=== PATIENT | male | born 1970 | race Caucasian/White ===

== ENCOUNTER → 2016-12-18 | Outpatient (CLI) | payer OTHER ==
[~2016-12-18] MED LIST: PRED-301 PO; PRED10TA PO
[2016-12-18 16:33] LABS: HEMATOCRIT 43.9 % (42-52); MEAN CELL VOLUME 84.9 fL (80-100); MEAN CORPUSCULAR HEMOGLOBIN 28.4 pg (25-34); MEAN CORPUSCULAR HGB CONC 33.5 g/dl (32-36); MEAN PLATELET VOLUME 9.6 fL (7.4-10.4); PLATELET COUNT 191 K/uL (130-400); RED BLOOD COUNT 5.17 M/uL (4.7-6.1); WHITE BLOOD COUNT 6.09 K/uL (4.8-10.8)
[2016-12-18 16:39] LABS: URINE APPEARANCE CLEAR (CLEAR); URINE BILIRUBIN NEG (NEG); URINE COLOR YELLOW; URINE EPITHELIAL CELL AUTO 0-5 /lpf (0-5); URINE NITRITE NEG (NEG); URINE PH 6.5 (4.5-7.5); URINE SPECIFIC GRAVITY 1.008 (1.000-1.030); UROBILINOGEN NEG (NEG)
[2016-12-18 16:40] LABS: ALT/SGPT 36 U/L (12-78); BLOOD UREA NITROGEN 34 mg/dl (7-18); BUN/CREATININE RATIO 13.2 (10-20); CARBON DIOXIDE 25 mmol/L (21-32); CHLORIDE 102 mmol/L (98-107); GLUCOSE 76 mg/dl (70-99); POTASSIUM 3.9 mmol/L (3.5-5.1); SODIUM 137 mmol/L (136-145)
[2016-12-18 16:42] LABS: MANUAL MICROSCOPIC REQUIRED? NO; REVIEW REQ? NO
[2016-12-18 16:43] LABS: ALB/GLOB RATIO 0.9 (0.9-2); ALKALINE PHOSPHATASE 94 U/L (45-117); AST/SGOT 30 U/L (15-37)
[2016-12-18 16:56] LABS: URINE PROTIEN/CREAT RATIO 0.4 (0-0.2); URINE TOTAL PROTEIN 10.8 mg/dl (0-11.9)
[2016-12-18 20:12] LABS: CALCIUM 13.2 mg/dl (8.5-10.1)
== END | disposition home or self-care (01) ==
LOC: C.LAB1850 14:43
PROVIDERS: ATTEND Internal Medicine Nephrology
DX: D86.9 Sarcoidosis, unspecified (principal); N18.3 Chronic kidney disease, stage 3 (moderate); N20.0 Calculus of kidney

== ENCOUNTER 2016-12-29 13:51 | Inpatient (IN) | payer OTHER ==
[~2016-12-29] VITALS: Ht 182.9 cm; Wt 74.5 kg
[~2016-12-29 13:51] MED LIST changes: -PRED10TA PO
[2016-12-29 14:48] VITALS: BP 143/89; PULSE 108; TEMP 37.1; O2SAT 98; Ht 182.9 cm; Wt 74.5 kg
[2016-12-29] MEDS ORDERED: ZOLPIDEM TARTRATE 5 MG TAB PO PRN (15:00)
[2016-12-29] MEDS ORDERED: ONDANSETRON INJ 2 MG/ML 2 ML VIAL IV PRN (15:00)
[2016-12-29] MEDS ORDERED: MAGNESIUM HYDROXIDE SUSP 30 ML UDC PO PRN (15:00)
[2016-12-29] MEDS ORDERED: POLYETHYLENE (MIRALAX) 17 GM PACK PO PRN (15:00)
[2016-12-29] MEDS ORDERED: ALUMINUM/MAGNESIUM/SIMETH (MAALOX MAX) 30 ML UDC PO PRN (15:00)
[2016-12-29] MEDS ORDERED: ACETAMINOPHEN 325 MG TAB PO PRN (15:00)
[2016-12-29 15:18] LABS: HEMATOCRIT 41.6 % (42-52); MEAN CELL VOLUME 83.9 fL (80-100); MEAN CORPUSCULAR HEMOGLOBIN 29.4 pg (25-34); MEAN CORPUSCULAR HGB CONC 35.1 g/dl (32-36); MEAN PLATELET VOLUME 9.1 fL (7.4-10.4); PLATELET COUNT 173 K/uL (130-400); RED BLOOD COUNT 4.96 M/uL (4.7-6.1); WHITE BLOOD COUNT 4.69 K/uL (4.8-10.8)
[2016-12-29 15:32] LABS: PROTHROMBIN TIME (PATIENT) 10.4 SECONDS (9.0-12.0)
[2016-12-29] MEDS: SODIUM CHLORIDE 0.9% 1000ML 1,000 ML IV SCH ×2 (15:50→20:40)
[2016-12-29 15:57] LABS: BUN/CREATININE RATIO 13.3 (10-20); CREATININE 2.7 mg/dl (0.60-1.40); MAGNESIUM 2.1 mg/dl (1.8-2.4); POTASSIUM 3.3 mmol/L (3.5-5.1)
[2016-12-29 15:58] LABS: PHOSPHORUS 2.4 mg/dl (2.5-4.9)
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
--- NOTE | 2016-12-29 16:04 | DIAGNOSTIC IMAGING REPORT ---
CHEST 2 VIEWS ROUTINE CLINICAL HISTORY: SOB dyspnea COMPARISON STUDY: 12/31/2013 FINDINGS: Interval development of diffuse bilateral interstitial change. Appearance is most consistent with that of an interstitial pneumonitis. No evidence for cardiac enlargement. Diaphragms smooth. IMPRESSION: Interval development of diffuse bilateral interstitial change. Initially, interstitial pneumonitis must be considered. Electronically signed by: Rafael Mcclain M.D. 12/29/2016 4:03 PM Dictated Date/Time: 12/29/2016 4:02 PM
[2016-12-29 16:06] LABS: CALCIUM 12.2 mg/dl (8.5-10.1)
[2016-12-29 19:33] VITALS: BP 125/76; PULSE 75; TEMP 36.9; O2SAT 99
[2016-12-29] MEDS: HEPARIN SOD 5000 UNIT/0.5 ML CARP SQ SCH (20:53)
[2016-12-29 23:10] VITALS: BP 113/67; PULSE 73; TEMP 36.9; O2SAT 94
[2016-12-29 23:50] LABS: BUN/CREATININE RATIO 13.6 (10-20); CALCIUM 10.3 mg/dl (8.5-10.1); CREATININE 2.6 mg/dl (0.60-1.40); POTASSIUM 3.8 mmol/L (3.5-5.1)
[2016-12-30 03:20] VITALS: BP 92/53; PULSE 60; TEMP 36.6; O2SAT 98
[2016-12-30] MEDS: HEPARIN SOD 5000 UNIT/0.5 ML CARP SQ SCH (05:04)
[2016-12-30 07:44] VITALS: BP 101/64; PULSE 67; TEMP 36.5; O2SAT 92
[2016-12-30 07:54] LABS: BUN/CREATININE RATIO 13.9 (10-20); CREATININE 2.6 mg/dl (0.60-1.40); POTASSIUM 4.4 mmol/L (3.5-5.1)
--- NOTE | 2016-12-30 08:21 | Rheumatology Consultation ---
Rheumatology Consultation Date of Consultation: December 30, 2016. Requesting Physician: Dr Bazan Attending Physician: Dr Bazan Reason for Consultation: hypercalcemia, sarcoid History of Present Illness Mr Leroy Martin is a 46 y/o male with a known diagnosis of pulmonary sarcoid dating back 9 yrs. He also has a solitary kidney, chronic stage 3 CKD (followed by Dr Soni) who presented to his outpatient visit with Dr Soni for routine 1 yr follow up. He had labs the week prior leading up to this appointment and it was noted that his calcium level was >13.2. Yesterday at his appt with Dr Soni he had no real complaints but given the calcium level was sent over to the hospital for admission. here at the hospital his calcium level was 12.2. He was started on IV fluids and given prednisone 70mg daily. He was seen today lying in bed. he feels pretty good. He denies any nausea, diarrhea, CP, night sweats, weight loss, MSK pains. He does report that over the last few months he has noted some increasing CARTER with hard exertion. when he is just walking around no CARTER> His CXR yesterday did show increased interstital markings suggestive of interstitial pneumonitis. He had a normal CXR last year with Dr Baez who is his instructional technology teacher. For diagnosis of sarcoid - he reports that it all started with him not able to get over a cold 9 yrs ago. he had fevers for 3 months and productive cough. He was seen by Dr Baez and at that time he reports his lungs were white on x ray. He recalls having a bronch but not sure if the biopsy proved he had sarcoid. 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 He reports that he was treated with prednisone at that time and thinks he was treated for 1 yr or a little more. He has not been on any treatment for some time now. He is not sure why he has kidney disease - at the time of his sarcoid diagnosis he was using a lot of OTC medications for what he thought was a cold. He has never had any inflammatory arthritis. he does mention that a few months ago the bones in his leg hurt - would be one area at a time but he just ignored it and it went away. no pain today. no rashes. He is hoping to go home soon. He has never seen rheumatology in the past. He does have an upcoming appointment with Dr Baez this February for routine pulmonary follow up. this am his calcium level is 10. His Cr is now ranging at 2.6 - 2 yrs ago was 1.5 range. GFR currently in the high 20's. His recent vit D was 19.8 and PTH was 13.3. several yrs ago MEME level was normal. Past Medical/Surgical History Medical History: kidney stones, renal disease, other (sarcoid) Surgical History: lithotripsy Family History no family history of autoimmune diseases father - alive mother - alive - history of breast CA Social History Smoking Status: Never Smoker History of Alcohol Use: No Occupation Status: employed Review of Systems Constitutional: No chills, No fever, No sweats, No weight loss Respiratory: + dyspnea on exertion, No cough, No sputum Cardiac: + see HPI, No chest pain, No edema Abdomen: + see HPI, No nausea, No pain Musculoskeletal: + see HPI, No joint pain, No muscle pain Skin: + see HPI, No rash All Other Systems: Reviewed and Negative Allergies Coded Allergies: No Known Allergies (Unverified , 01/16/14) Medications Current Inpatient Medications Medications (Trade) Dose Ordered Sig/Nicola Route Start Time Stop Time Status Last Admin Dose Admin Heparin Sodium (Porcine) (Heparin Sq 5000 Unit/0.5ml) 5,000 unit Q8 SQ 12/29/16 22:00 01/28/17 21:59 Acetaminophen (Tylenol Tab) 650 mg Q4H PRN PO 12/29/16 15:00 01/28/17 14:59 Al Hydrox/Mg Hydrox/Simethicone (Maalox Max Susp) 15 ml Q4H PRN PO 12/29/16 15:00 01/28/17 14:59 Magnesium Hydroxide (Milk Of Magnesia Susp) 30 ml Q12H PRN PO 12/29/16 15:00 01/28/17 14:59 Zolpidem Tartrate (Ambien Tab) 5 mg HSZ PRN PO 12/29/16 15:00 01/28/17 14:59 Ondansetron HCl (Zofran Inj) 4 mg Q6H PRN IV 12/29/16 15:00 01/28/17 14:59 Polyethylene (Miralax Powder Packet) 17 gm DAILY PRN PO 12/29/16 15:00 01/28/17 14:59 Prednisone (PredniSONE TAB) 70 mg DAILY PO 12/29/16 16:30 01/28/17 16:29 12/29/16 17:19 70 MG Physical Exam Date Time Temp Pulse Resp B/P Pulse Ox O2 Delivery O2 Flow Rate FiO2 12/30/16 07:44 36.5 67 16 101/64 92 Room Air 12/30/16 04:00 Room Air 12/30/16 03:20 36.6 60 16 92/53 98 Room Air 12/30/16 00:01 Room Air 12/29/16 23:10 36.9 73 16 113/67 94 Room Air 12/29/16 20:00 Room Air 12/29/16 19:33 36.9 75 18 125/76 99 Room Air 12/29/16 14:48 37.1 108 19 143/89 98 Room Air General Appearance: WD/WN, no apparent distress Eyes: bilateral eyes EOMI, bilateral eyes normal inspection ENT: normal ENT inspection, hearing grossly normal, pharynx normal Respiratory: chest non-tender, no respiratory distress, no accessory muscle use , + pertinent finding (some oarse breath sounds noted but no rhonchi or wheezes) Cardiovascular: regular rate, rhythm, no edema, no gallop, no murmur Abdomen: normal bowel sounds, non tender, soft Musculoskeletal: no synovitis or dactylitis Neurologic/Psychiatric: alert, normal mood/affect, oriented x 3 Skin: normal color, warm/dry, no rash Laboratory Results Last 24 Hours Test 12/29/16 15:00 12/29/16 22:50 12/30/16 06:52 White Blood Count 4.69 K/uL Red Blood Count 4.96 M/uL Hemoglobin 14.6 g/dL Hematocrit 41.6 % Mean Corpuscular Volume 83.9 fL Mean Corpuscular Hemoglobin 29.4 pg Mean Corpuscular Hemoglobin Concent 35.1 g/dl RDW Standard Deviation 38.5 fL RDW Coefficient of Variation 12.8 % Platelet Count 173 K/uL Mean Platelet Volume 9.1 fL Prothrombin Time 10.4 SECONDS Prothromb Time International Ratio 1.0 Sodium Level 138 mmol/L 145 mmol/L Potassium Level 3.3 mmol/L 3.8 mmol/L Chloride Level 103 mmol/L 110 mmol/L Carbon Dioxide Level 26 mmol/L 26 mmol/L Anion Gap 9.0 mmol/L 9.0 mmol/L Blood Urea Nitrogen 36 mg/dl 35 mg/dl Creatinine 2.70 mg/dl 2.60 mg/dl Est Creatinine Clear Calc Drug Dose 35.6 ml/min 36.9 ml/min Estimated GFR () 31.8 33.3 Estimated GFR (Non- 27.4 28.7 BUN/Creatinine Ratio 13.3 13.6 Random Glucose 106 mg/dl 117 mg/dl Calcium Level 12.2 mg/dl 10.3 mg/dl Phosphorus Level 2.4 mg/dl Magnesium Level 2.1 mg/dl Assessment & Plan Assessment & Plan: Assessment: Mr Leroy Martin is a 46 y/o male with known sarcoid, ckd stage 2/3 who presented with hypercalcemia, worsening kidney disease (stage 4 but unclear if this is acute) and found to have increased pulmonary interstitial changes on chest x ray. These changes are felt to be likely related to his sarcoid. Unclear if his worsening kidney disease is related to his sarcoid or not - usually sarcoid renal disease is the hypercalcemia, interstitial nephritis is usually at the time of diagnosis and not in long standing disease. His calcium levels has normalized at this point with IVF and prednisone. I would continue with prednisone but can decrease the dose to 30mg daily and discharge him on this dose. He will need outpatient pulmonology evaluation sooner than February and I will contact his [facility] Trucking Supervisor to get this arrange. Question is will he need therapy for his lung disease outside of steroids. The case was discussed with Dr Bazan yesterday as well as the hospitalist today. Plan: 1. I suggest cutting prednisone to 30mg daily and discharge on this dose 2. Recommend getting UA, urine prot/creat ratio prior to discharge - I will contact his upholsterer apprentice to discuss further - unclear if kidney biopsy is needed at this point 3. I will send a message to Dr Baez ([facility]) regarding his admission to see if he can move the patients outpatient evaluation up 4. I will get outpatient Rheumatology appt set up in our [facility] in the next 2 weeks 5. Thank you for the consult and involving me in this patients care.
[2016-12-30] MEDS ORDERED: PRED10TA PO (09:41)
--- NOTE | 2016-12-30 10:30 | Nephrology Consultation ---
Nephrology Consultation Date & Providers Date of Consultation: December 30, 2016. Primary Care Provider: No Doctor, Assigned Referring Provider: Reason for Consultation Evaluation of hypercalcemia, sarcoidosis and acute on chronic kidney injury History of Present Illness Mr. Martin is a 46 year old white male who is seen at the request of Dr. Rosas for evaluation of acute on chronic kidney injury, hypercalcemia and sarcoidosis. Medical records in the hospital and office EMR were reviewed and are summarized as follows: Mr. Martin has been a longstanding patient of [facility]. He has a congenital solitary functioning left kidney. This was an incidental finding on abdominal CT. His baseline creatinine has been 1.5 (01/26 ). He has mixed CaOx and CaPO4 kidney stones and has required lithotripsy in the past. He has undergone metabolic stone evaluation and follows w/ Nephrology on an annual basis. His medical history is also significant for sarcoidosis. Mr. Martin presented to the Nephrology office yesterday for routine evaluation. Laboratory results revealed Ca 13.2 w/ low vitamin D & PTH levels. Serum creatinine had risen to 2.6. Urine sediment was benign. There was no hematuria or casts. UPCR was 0.4. Direct admission to the hospital was arranged for medical management of hypercalcemia, sarcoidosis and acute on chronic kidney disease. Since admission to the hospital Mr. Martin has been treated w/ IVF and prednisone. Calcium has normalized but creatinine is unchanged. CXR films were reviewed this am. Patient has bilateral interstitial infiltrates. Rheumatology consultation was reviewed. They have recommended tapering prednisone to 30 mg daily and outpatient follow up. Arrangements are being made for patient to see his manager lighting Dr. Baez as an outpatient. Past Medical/Surgical History Medical: # Congenital solitary functioning L kidney # Sarcoidosis # Mixed CaOx & CaPO4 kidney stones s/p lithotripsy Surgical: # Lithotripsy Allergies Coded Allergies: No Known Allergies (Unverified , 01/16/14) Inpatient Medications Current Inpatient Medications Medications (Trade) Dose Ordered Sig/Nicola Route Start Time Stop Time Status Last Admin Dose Admin Heparin Sodium (Porcine) (Heparin Sq 5000 Unit/0.5ml) 5,000 unit Q8 SQ 12/29/16 22:00 01/28/17 21:59 Acetaminophen (Tylenol Tab) 650 mg Q4H PRN PO 12/29/16 15:00 01/28/17 14:59 Al Hydrox/Mg Hydrox/Simethicone (Maalox Max Susp) 15 ml Q4H PRN PO 12/29/16 15:00 01/28/17 14:59 Magnesium Hydroxide (Milk Of Magnesia Susp) 30 ml Q12H PRN PO 12/29/16 15:00 01/28/17 14:59 Zolpidem Tartrate (Ambien Tab) 5 mg HSZ PRN PO 12/29/16 15:00 01/28/17 14:59 Ondansetron HCl (Zofran Inj) 4 mg Q6H PRN IV 12/29/16 15:00 01/28/17 14:59 Polyethylene (Miralax Powder Packet) 17 gm DAILY PRN PO 12/29/16 15:00 01/28/17 14:59 Prednisone (PredniSONE TAB) 70 mg DAILY PO 12/29/16 16:30 01/28/17 16:29 12/30/16 08:03 70 MG Family History Patient reports no known family medical history. Negative for CKD / ESRD Social History Smoking Status: Never Smoker Smokeless Tobacco Use: No Alcohol Use: none Marital Status: single Occupation: employed Single. No children. 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 Never a smoker. Review of Systems Constitutional: No fever Respiratory: + dyspnea on exertion, No cough Cardiovascular: No chest pain Abdomen: No nausea, No pain, No vomiting A complete review of systems was performed. Pertinent positives are noted above. All other systems are negative. Physical Exam Date Time Temp Pulse Resp B/P Pulse Ox O2 Delivery O2 Flow Rate FiO2 12/30/16 07:44 36.5 67 16 101/64 92 Room Air 12/30/16 04:00 Room Air 12/30/16 03:20 36.6 60 16 92/53 98 Room Air 12/30/16 00:01 Room Air 12/29/16 23:10 36.9 73 16 113/67 94 Room Air 12/29/16 20:00 Room Air 12/29/16 19:33 36.9 75 18 125/76 99 Room Air 12/29/16 14:48 37.1 108 19 143/89 98 Room Air General Appearance: WD/WN, no apparent distress Head: normocephalic, atraumatic Eyes: PERRL, EOMI Neck: supple, no adenopathy Respiratory/Chest: lungs clear, no respiratory distress Cardiovascular: regular rate, rhythm Abdomen/GI: normal bowel sounds, non tender, soft Back: no CVA tenderness Extremities/Musculoskelatal: no calf tenderness, no pedal edema Neurologic/Psych: alert, oriented x 3 Skin: warm/dry Laboratory Results Last 24 Hours Test 12/29/16 15:00 12/29/16 22:50 12/30/16 06:52 White Blood Count 4.69 K/uL Red Blood Count 4.96 M/uL Hemoglobin 14.6 g/dL Hematocrit 41.6 % Mean Corpuscular Volume 83.9 fL Mean Corpuscular Hemoglobin 29.4 pg Mean Corpuscular Hemoglobin Concent 35.1 g/dl RDW Standard Deviation 38.5 fL RDW Coefficient of Variation 12.8 % Platelet Count 173 K/uL Mean Platelet Volume 9.1 fL Prothrombin Time 10.4 SECONDS Prothromb Time International Ratio 1.0 Sodium Level 138 mmol/L 145 mmol/L 142 mmol/L Potassium Level 3.3 mmol/L 3.8 mmol/L 4.4 mmol/L Chloride Level 103 mmol/L 110 mmol/L 111 mmol/L Carbon Dioxide Level 26 mmol/L 26 mmol/L 24 mmol/L Anion Gap 9.0 mmol/L 9.0 mmol/L 7.0 mmol/L Blood Urea Nitrogen 36 mg/dl 35 mg/dl 36 mg/dl Creatinine 2.70 mg/dl 2.60 mg/dl 2.60 mg/dl Est Creatinine Clear Calc Drug Dose 35.6 ml/min 36.9 ml/min 38.2 ml/min Estimated GFR () 31.8 33.3 33.3 Estimated GFR (Non- 27.4 28.7 28.7 BUN/Creatinine Ratio 13.3 13.6 13.9 Random Glucose 106 mg/dl 117 mg/dl 126 mg/dl Calcium Level 12.2 mg/dl 10.3 mg/dl 10.0 mg/dl Phosphorus Level 2.4 mg/dl Magnesium Level 2.1 mg/dl Impression (1) Hypercalcemia due to sarcoidosis (2) Acute renal insufficiency (3) CKD (chronic kidney disease) stage 3, GFR 30-59 ml/min (4) Sarcoidosis (5) History of kidney stones Recommendations Patient seen & examined in the PCU this morning. He has tolerated IV fluids and initiation of steroid therapy. His serum calcium has normalized. Kidney function remains unchanged. Outpatient laboratory studies at [facility] lab revealed a benign urine sediment without casts. Clinically suspect that patient suffered mild volume contraction associated w/ hypercalcemia and acute on chronic kidney injury. He may have interstitial scarring associated w/ sarcoidosis. We discussed the indications/benefits/risks and alternatives to a [place] kidney biopsy. The patient has a solitary functioning kidney. He does not wish to risk further injury to the kidney. We will order a renal US and proceed w/ medical management of sarcoidosis. I have placed an order in [employer] to have my temporary staff accountant contact patient on Sunday and schedule an outpatient follow up visit in 2 - 3 weeks. Orders have been placed in office EMR to have follow up blood work completed prior to his office visit. 60 minute visit provided to the patient today. This was necessary to review his medical record, trial consultant recommendations, perform physical and discuss indications/risks of kidney biopsy and medical management. Over 50% of time provided was spent on education and coordination of care.
--- NOTE | 2016-12-30 10:52 | Discharge Instructions ---
Discharge Instructions Date of Service December 30, 2016. Admission Reason for Admission: Hyper Calcemia,Sarcoidosis Discharge Discharge Diagnosis / Problem: Hypercalcemia, CKD stage III solitary kidney, Sarcoidsosis Discharge Goals Goal(s): Improve function, Diagnostic testing, Specific goals (follow up with specialists) Activity Recommendations Activity Limitations: resume your previous activity Exercise/Sports Limitations: as tolerated May Resume Sexual Activity: when tolerated Shower/Bathe: no limitations Driving or Machine Use: no limitations . Instructions / Follow-Up Instructions / Follow-Up Medications: - PREDNISONE: 30mg daily, continue this until instructed to change dose by rheumatology FOLLOW UP - Dr. Lundberg: his office will contact you about an appointment in 2 weeks - Dr. Soni: his office will contact you about a follow up appointment in 1-2 weeks - Please contact Dr. Baez in [place] about moving up appointment from February to next 2 weeks, Dr. Lundberg said that he was going to contact them as well Current Hospital Diet Patient's current hospital diet: Regular Diet Discharge Diet Recommended Diet: Regular Diet Procedures Procedures Performed: none Pending Studies Studies pending at discharge: no Laboratory Results Last Resulted CBC 12/29/16 15:00 Last Resulted BMP 12/30/16 06:52 Medical Emergencies . Who to Call and When: Medical Emergencies: If at any time you feel your situation is an emergency, please call 911 immediately. . Non-Emergent Contact Non-Emergency issues call your: Cemetery Worker, Foreign Language Teacher, Specialist (Dr. Lundberg) Call Non-Emergent contact if: you have any medication questions . Past History Medical & Surgical History: (1) CKD (chronic kidney disease) stage 3, GFR 30-59 ml/min (2) Hypercalcemia due to sarcoidosis . "Provider Documentation" section prepared by Elmer Rosas. . VTE Core Measure Inpt VTE Proph given/why not?: Unfractionated heparin SQ [place] Drug Monitoring Program Search Results: no issues identified
[2016-12-30 11:41] VITALS: BP 113/71; PULSE 74; TEMP 36.6; O2SAT 98
--- NOTE | 2016-12-30 12:37 | DIAGNOSTIC IMAGING REPORT ---
RENAL ULTRASOUND HISTORY: Renal insufficiency DIOMEDES COMPARISON: None. FINDINGS: Right kidney: Surgically absent Left kidney: Maximum dimension 12.0 cm. Nonobstructing lower pole calcification. Increased cortical echogenicity consistent with nonobstructive renal insufficiency. Bladder: No bladder wall thickening. The bilateral ureteral jets were identified. IMPRESSION: 1. Absent right kidney. 2. Increased cortical echogenicity left kidney with a nonobstructing lower pole 7 mm calcification. 3. The appearance is suggestive of nonobstructive renal insufficiency Electronically signed by: Rafael Mcclain M.D. 12/30/2016 12:35 PM Dictated Date/Time: 12/30/2016 12:34 PM
--- NOTE | 2016-12-30 12:41 | DIAGNOSTIC IMAGING REPORT ---
CHEST CT WITHOUT CONTRAST CT DOSE: 253.62 mGy.cm HISTORY: Interstitial lung disease sarcoidosis TECHNIQUE: Multiaxial CT images of the chest were performed without contrast. COMPARISON: None. FINDINGS: Diffuse subtle increase in interstitial markings throughout both hemithoraces. Calcified granuloma right upper lobe considered benign. No consolidative infiltrates. Interstitial changes predominate in the lower to mid lung regions. No significant hilar or mediastinal adenopathy within limitations of an unenhanced scan. Limited evaluation the upper abdomen is unremarkable. Possible subtle underlying interstitial reticular nodular-type change. IMPRESSION: 1. Diffuse nonspecific interstitial change predominantly in the mid to lower lung regions bilaterally. 2. Diagnostic considerations include a nonspecific interstitial pneumonitis, hypersensitivity pneumonitis, versus a multiplicity of etiologies with findings of interstitial change 3. There are no consolidative or focal infiltrative change. 4. Interstitial changes described are potentially associated with minimal reticular nodular-type change as a secondary finding.. 5. Acquisition of prior studies would be helpful for more definitive evaluation Electronically signed by: Rafael Mcclain M.D. 12/30/2016 12:40 PM Dictated Date/Time: 12/30/2016 12:35 PM
--- NOTE | 2016-12-30 13:18 | Pulmonary Consultation ---
History General Date of Service: December 30, 2016. Stated Complaint: Hyper Calcemia,Sarcoidosis HPI The patient is a 46 year old male who presents to [facility] with complaints of Hyper Calcemia,Sarcoidosis. The patient's primary care provider is No Doctor, Assigned. 46y/o male directly admitted for hypercalcemia and JAQUELIN secondary to a possible sarcoidosis flare. The patient has noted progressive dyspnea over the last 3-6 months. His progressive CARTER is his only active complaint. He denies: chronic cough, fever, chills, night sweats, weight loss, classic cardiac CP, pleurisy, palpitations, nausea, vomiting or sick contacts. The patient notes he was diagnoses with sarcoidosis after a bronchoscopy but stated he is not sure the pathology was consistent with sarcoidosis. He sees his c d area supervisor once per year gets PFTs every other year and has not seen Dr. Baez since his decline. He notes being off steroids for the last 2 years. Work-Up: WBC: 5K Plt: 173 H/H: 15/42 INR/PT: 1.0/10.4 BUN/Cr: 36/2.60 EGFR: 28.7 Ca: 12.210.0 Phos: 2.4 M.1 EKG (12/29/16) compared to (12/31/13) Stable NSR, RSR V1 CXR compared to 12/31/2013 Moderate increased of bilateral interstitial changes greatest in the RLL and RML CT ABD (11/23/13) Minimal interstitial changes in the LLL (LB10) and RML (RB4) Historian: patient, EMS Review of Systems Constitutional: reports: malaise, weakness Eyes: reports: no symptoms ENT: reports: no symptoms Cardiovascular: reports: no symptoms Respiratory: reports: as stated in HPI Gastrointestinal: reports: no symptoms Genitourinary - Male: reports: no symptoms Musculoskeletal: reports: no symptoms Integumentary: reports: no symptoms Neurologic: reports: no symptoms Psychiatric: reports: no symptoms Endocrine: no symptoms Hematologic / Lymphatic: no symptoms Allergic / Immunologic: no symptoms Past Medical History Past Medical History: 1) Acute renal insufficiency 2) Chronic kidney disease (CKD), stage II (mild) baseline creatinine has been 1.4 w/ mGFR 65 cc/minute 3) Congenital solitary functioning left kidney 4) Nephrolithiasis (CaOx-small amount of CaPO4) 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 Baez in [place], [place]) 7) Hypercalcemia Past Surgical History: 1) Lithotripsy 01/2014 (left: renal stone) Family History Patient reports no known family medical history. 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 Hx Tobacco Use In Past Year?: No Smoking Status: Never Smoker Marital status: single Occupational Status: employed Allergies Coded Allergies: No Known Allergies (Unverified , 01/16/14) Current Medications Reported Home Medications Medications Dose Route/Sig Max Daily Dose Days Date Category Prednisone 10 Mg Tab 30 Mg PO DAILY 30 12/30/16 Rx Prednisone 5 Mg Tab 5 Mg PO DAILY 11/23/13 Reported Physical Physical Exam Vital Signs: Date Time Temp Pulse Resp B/P Pulse Ox O2 Delivery O2 Flow Rate FiO2 12/30/16 12:00 Room Air 12/30/16 11:41 36.6 74 16 113/71 98 Room Air 12/30/16 08:00 Room Air 12/30/16 07:44 36.5 67 16 101/64 92 Room Air 12/30/16 04:00 Room Air 12/30/16 03:20 36.6 60 16 92/53 98 Room Air 12/30/16 00:01 Room Air 12/29/16 23:10 36.9 73 16 113/67 94 Room Air 12/29/16 20:00 Room Air 12/29/16 19:33 36.9 75 18 125/76 99 Room Air 12/29/16 14:48 37.1 108 19 143/89 98 Room Air General Appearance: WELL-APPEARING, WD/WN, NO APPARENT DISTRESS Head: NORMOCEPHALIC, ATRAUMATIC Eyes: PERRLA, NO DISCHARGE, EOMI, SCLERAE NORMAL, CONJUNCTIVAE NORMAL, FUNDUSCOPIC EXAM NORMAL ENT: NORMAL EAR EXAM, NORMAL NASAL EXAM, NORMAL MOUTH EXAM, NORMAL THROAT EXAM , NORMAL DENTAL EXAM, NORMAL SINUS EXAM Neck: NORMAL RANGE OF MOTION, NO TENDERNESS, TRACHEA MIDLINE, NO STRIDOR, SUPPLE, NO THYROMEGALY Respiratory: BREATH SOUNDS NORMAL, CLEAR TO AUSCULTATION, CLEAR TO PERCUSSION, NO RESPIRATORY DISTRESS Cardiovasular: REGULAR RATE/RHYTHM, NORMAL S1S2, NO M/G/R, NO MURMUR, NO GALLOP Abdomen: NON TENDER, NORMAL BOWEL SOUNDS, NO REBOUND, NO MASSES, NO GUARDING, NO ORGANOMEGALY, NORMAL RECTAL EXAM Genitourinary - Male: EXTERNAL GENITALIA NORMAL Back: NORMAL INSPECTION, NO MIDLINE TENDERNESS, NO CVA TENDERNESS, NO PARAVERTEBRAL TTP Upper Extremities: NO EDEMA, NO DEFORMITY, NORMAL ROM Lower Extremities: NO EDEMA, NO DEFORMITY, NORMAL ROM Pulses: carotid (R) (2+), carotid (L) (2+), dorsalis pedis (R) (2+), dorsalis pedis (L) (2+) Neuro: ALERT, ORIENTED x 3, NORMAL MOTOR EXAM, NORMAL SENSATION, NORMAL CEREBELLAR EXAM, NORMAL SPEECH, NORMAL GAIT Reflexes: biceps (R), bicpes (L) (2+), achilles (R) (2+), achilles (L) (2+) Babinski Testing: right (downgoing), left (downgoing) Psychiatric: NORMAL AFFECT, NO SUICIDAL IDEATION, CONTRACTS FOR SAFETY Diagnostics Labs Results Past 24 Hours Test 12/29/16 15:00 12/29/16 22:50 12/30/16 06:52 Range/Units White Blood Count 4.69 4.8-10.8 K/uL Red Blood Count 4.96 4.7-6.1 M/uL Hemoglobin 14.6 14.0-18.0 g/dL Hematocrit 41.6 42-52 % Mean Corpuscular Volume 83.9 80-100 fL Mean Corpuscular Hemoglobin 29.4 25-34 pg Mean Corpuscular Hemoglobin Concent 35.1 32-36 g/dl RDW Standard Deviation 38.5 36.4-46.3 fL RDW Coefficient of Variation 12.8 11.5-14.5 % Platelet Count 173 130-400 K/uL Mean Platelet Volume 9.1 7.4-10.4 fL Prothrombin Time 10.4 9.0-12.0 SECONDS Prothromb Time International Ratio 1.0 0.9-1.1 Sodium Level 138 145 142 136-145 mmol/L Potassium Level 3.3 3.8 4.4 3.5-5.1 mmol/L Chloride Level 103 110 111 98-107 mmol/L Carbon Dioxide Level 26 26 24 21-32 mmol/L Anion Gap 9.0 9.0 7.0 3-11 mmol/L Blood Urea Nitrogen 36 35 36 7-18 mg/dl Creatinine 2.70 2.60 2.60 0.60-1.40 mg/dl Est Creatinine Clear Calc Drug Dose 35.6 36.9 38.2 ml/min Estimated GFR () 31.8 33.3 33.3 Estimated GFR (Non- 27.4 28.7 28.7 BUN/Creatinine Ratio 13.3 13.6 13.9 10-20 Random Glucose 106 117 126 70-99 mg/dl Calcium Level 12.2 10.3 10.0 8.5-10.1 mg/dl Phosphorus Level 2.4 2.5-4.9 mg/dl Magnesium Level 2.1 1.8-2.4 mg/dl Diagnostic Radiology CXR compared to 12/31/2013 Moderate increased of bilateral interstitial changes greatest in the RLL and RML CT ABD (11/23/13) Minimal interstitial changes in the LLL (LB10) and RML (RB4) EKG EKG (12/29/16) compared to (12/31/13) Stable NSR, RSR V1 Impression Assessment and Plan 46y/o male admitted with symptomatic hypercalcemia: 1) Sarcoidosis: At this time I need this patients previous work-up with PFTs, CXRs, CAT scans, serum studies and pathology reports for a better understanding of his sarcoid diagnosis and staging. I agree with a 24 hour urine Ca and will order and MEME level, HRCT of the thorax and bedside spirometry at this time. It would be better to see if his previous flares were associated with elevation in Ca+ or an MEME levels as these have low over all sensitivity unless they have been seen in the past to correlate with his disease. His clinical history can suggest a Sarcoid flare but his CXR is atypical for Sarcoid as it is more lower lobe involved and no signs of mediastinal adenopathy. At this time I would suggest to drop his prednisone to 30-40mg QD and compare his new work-up to his past. At this time as fare as his pulmonary function is concerned he can be worked-up as an outpatient. He will need f/u with myself or his primary Electricians Top Helper Dr. Baez within 2 weeks of his d/c.
[2016-12-30 13:26] VITALS: BP 113/71; PULSE 74; TEMP 36.6; O2SAT 98
--- NOTE | 2016-12-31 07:59 | Discharge Summary ---
Discharge Summary Date of Service December 31, 2016. Discharge Summary Admission Date: December 29, 2016 at 14:33 Discharge Date: December 30, 2016 Discharge Disposition: Home Principal Diagnosis: Sarcoidosis Problems/Secondary Diagnoses: CKD stage III Hypercalcemia, resolved Procedures: Pulmonary function testing - resulted as mild restrictive pattern, no evidence of obstructive pattern CT chest - mid and lower lobe interstitial changes consistent with pneumonitis, inflammation Renal US - absent right kidney, evidence of non-obstructive kidney disease on the left Consultations: Pulmonology - Dr. Schwartz Nephrology - Dr. Soni Rheumatology - Dr. Haley Medication Reconciliation New Medications: Prednisone (Prednisone) 10 Mg Tab 30 MG PO DAILY for 30 Days, #90 TAB Discontinued Medications: Prednisone (Prednisone) 5 Mg Tab 5 MG PO DAILY, TAB Discharge Exam Patient was feeling quite well in the morning, no complaints. Denied shortness of breath or cough, no chest pain, no joint pain or swelling. He slept well and ate his breakfast. Appreciate consultations from specialists, spoke personally with Dr. Soni, Dr. Schwartz and Dr. Lundberg. Review of Systems: Constitutional: No chills, No fatigue, No fever, No problem reported, No sweats, No weakness, No weight loss Eyes: No diplopia, No discharge, No eye pain, No problem reported, No redness, No worsening of vision ENT: No dental problems, No hearing loss, No nasal symptoms, No problem reported, No sore throat, No tinnitus, No trouble swallowing, No unusual epistaxis Respiratory: + dyspnea on exertion (only with intense exertion), No cough, No dyspnea at rest, No hemoptysis, No problem reported, No shortness of breath, No sputum, No wheezing Cardiovascular: No PND, No chest pain, No claudication, No edema, No orthopnea, No palpitations, No problem reported Abdomen: No GI bleeding, No constipation, No diarrhea, No nausea, No pain, No problem reported, No vomiting Musculoskeletal: No calf pain, No joint pain, No muscle pain, No problem reported, No swelling Genitourinary - Male: No dysuria, No hematuria, No urinary frequency, No urinary urgency Neurologic: No balance problems, No memory loss, No numbness/tingling, No paralysis, No problem reported, No vertigo, No weakness Psychiatric: No anhedonism, No anxiety, No depression symptoms, No insomnia , No problem reported, No substance abuse Endocrine: No excessive thirst, No excessive urination, No fatigue, No problem reported Hematologic / Lymphatic: No abnormal bleeding/bruising, No clotting problems , No night sweats, No problem reported, No swollen lymph nodes Integumentary: No bleeding, No color change, No itch, No new/changing skin lesions, No problem reported, No rash Physical Exam: General Appearance: WD/WN, no apparent distress Eyes: normal inspection, EOMI, sclerae normal ENT: normal ENT inspection, hearing grossly normal, pharynx normal Neck: supple, no adenopathy, thyroid normal, no JVD, trachea midline Respiratory/Chest: chest non-tender, lungs clear, normal breath sounds, no respiratory distress, no accessory muscle use Cardiovascular: regular rate, rhythm, no edema, no gallop, no JVD, no murmur , normal peripheral pulses Abdomen / GI: normal bowel sounds, non tender, soft, no organomegaly Extremities: normal inspection, no calf tenderness, normal capillary refill , no pedal edema, normal range of motion, pelvis stable Neurologic/Psychiatric: fitter mechanic II-XII nml as tested, no motor/sensory deficits , alert, normal mood/affect, normal reflexes, oriented x 3 Skin: normal color, warm/dry, no rash Lymphatic: no adenopathy Hospital Course 46 y/o M w/Hx sarcoidosis, congenital absence of R kidney, renal calculi, CKD - unstaged. Pt was at a follow-up appt with his Brushing Machine Operator to evaluate for renal calculi and upon reviewing his labs his MD noted moderate hypercalcemia and worsening renal function. The pt has had a degree of exertional dyspnea possibly related to his sarcoid however he denies any current acute issues. He actually stated that he "feels great" today although he has struggled with chronic fatigue as well. He denies significant joint pains, fevers, night sweats or unintentional weight loss. - CKD stage III with hypercalcemia: appreciate recommendations from nephrology with Dr. Soni poor follow up, the last Cr he had was a year ago and now with Cr of 2.7 and 2.6 on repeat he is making adequate urine Calcium returned to normal with IV fluids and Prednisone spoke with Dr. Soni, he says that the Prednisone 30mg will be adequate to control calcium levels renal US showed absent right kidney, non-obstructive renal disease on the left kidney he will follow up in office within 2 weeks - Hypercalcemia: due to sarcoidosis, resolved with IV fluids and Prednisone, continue Prednisone on discharge - Sarcoidosis: appreciate consultations from Dr. Haley and Dr. Schwartz will d/c home on Prednisone 30mg daily with no plans for taper until seen by Dr. Haley in 1-[address] chest shows interstitial changes, no evidence of hilar adenopathy PFT - mild restrictive pattern, no obstruction Dr. Schwartz recommends check MEME level during flare, recommends close follow up with imaging tech Dr. Baez in [place] breathing comfortably, vitals stable, lab work is normal d/c home with close follow up with rheumatology, pulmonology and nephrology Total Time Spent: Greater than 30 minutes This includes examination of the patient, discharge planning, medication reconciliation, and communication with other providers. Discharge Instructions Please refer to the electronic Patient Visit Report (Discharge Instructions) for additional information. Follow-Up Dr. Haley in 1-[address] Soni in [address] Baez in 2 weeks Additional Copies To Christopher Baez M.D.; Tl Soni M.D.; Kiran Haley M.D.; Ralph Schwartz MD
--- NOTE | 2017-01-01 07:06 | PULMONARY FUNCTION TEST ---
Readings are based off ATS criteria. SPIROMETRY: Mild restrictive ventilatory dysfunction.
== END 2016-12-30 13:45 | disposition home or self-care (01) | DRG 196 ==
LOC: C.2T 14:33
PROVIDERS: ADMIT Internal Medicine; ATTEND Internal Medicine
DX: D86.9 Sarcoidosis, unspecified (principal); J18.9 Pneumonia, unspecified organism; Q60.0 Renal agenesis, unilateral; N18.3 Chronic kidney disease, stage 3 (moderate); E83.52 Hypercalcemia

== ENCOUNTER → 2017-01-18 | Outpatient (CLI) | payer OTHER ==
[~2017-01-18] MED LIST changes: -PRED-301 PO; +PRED10TA PO
[2017-01-18 09:39] LABS: URINE APPEARANCE CLEAR (CLEAR); URINE BILIRUBIN NEG (NEG); URINE COLOR YELLOW; URINE NITRITE NEG (NEG); URINE SPECIFIC GRAVITY 1.009 (1.000-1.030); UROBILINOGEN NEG (NEG); ZZUR CULT IF INDIC CLEAN CATCH NO
[2017-01-18 09:42] LABS: HEMATOCRIT 47.7 % (42-52); MEAN CELL VOLUME 89.5 fL (80-100); MEAN CORPUSCULAR HEMOGLOBIN 29.5 pg (25-34); MEAN CORPUSCULAR HGB CONC 32.9 g/dl (32-36); MEAN PLATELET VOLUME 10.1 fL (7.4-10.4); PLATELET COUNT 139 K/uL (130-400); RED BLOOD COUNT 5.33 M/uL (4.7-6.1); WHITE BLOOD COUNT 7.89 K/uL (4.8-10.8)
[2017-01-18 09:44] LABS: MANUAL MICROSCOPIC REQUIRED? NO; REVIEW REQ? NO
[2017-01-18 10:23] LABS: ALT/SGPT 67 U/L (12-78); AST/SGOT 27 U/L (15-37); BLOOD UREA NITROGEN 24 mg/dl (7-18); BUN/CREATININE RATIO 14.7 (10-20); CALCIUM 8.8 mg/dl (8.5-10.1); CARBON DIOXIDE 28 mmol/L (21-32); CHLORIDE 106 mmol/L (98-107); GLUCOSE 68 mg/dl (70-99); POTASSIUM 3.8 mmol/L (3.5-5.1); SODIUM 141 mmol/L (136-145)
[2017-01-18 10:25] LABS: ALB/GLOB RATIO 0.9 (0.9-2); ALKALINE PHOSPHATASE 75 U/L (45-117)
[2017-01-18 10:46] LABS: URINE PROTIEN/CREAT RATIO 0.3 (0-0.2)
== END | disposition home or self-care (01) ==
LOC: C.LAB1850 08:43
PROVIDERS: ATTEND Internal Medicine Nephrology
DX: D86.9 Sarcoidosis, unspecified (principal); N28.9 Disorder of kidney and ureter, unspecified; N20.0 Calculus of kidney; N18.2 Chronic kidney disease, stage 2 (mild)

== ENCOUNTER → 2017-05-16 | Outpatient (CLI) | payer OTHER ==
[2017-05-16 12:54] LABS: HEMATOCRIT 46.4 % (42-52); MEAN CELL VOLUME 88.2 fL (80-100); MEAN CORPUSCULAR HEMOGLOBIN 29.3 pg (25-34); MEAN CORPUSCULAR HGB CONC 33.2 g/dl (32-36); MEAN PLATELET VOLUME 10.1 fL (7.4-10.4); PLATELET COUNT 163 K/uL (130-400); RED BLOOD COUNT 5.26 M/uL (4.7-6.1); WHITE BLOOD COUNT 6.46 K/uL (4.8-10.8)
[2017-05-16 13:15] LABS: URINE APPEARANCE CLEAR (CLEAR); URINE BILIRUBIN NEG (NEG); URINE COLOR YELLOW; URINE NITRITE NEG (NEG); URINE SPECIFIC GRAVITY 1.011 (1.000-1.030); UROBILINOGEN NEG (NEG)
[2017-05-16 13:19] LABS: MANUAL MICROSCOPIC REQUIRED? YES; REVIEW REQ? NO
[2017-05-16 13:38] LABS: URINE TOTAL PROTEIN < 5.0 mg/dl (0-11.9)
[2017-05-16 13:39] LABS: ALT/SGPT 37 U/L (12-78); BLOOD UREA NITROGEN 26 mg/dl (7-18); BUN/CREATININE RATIO 15.2 (10-20); CALCIUM 9.9 mg/dl (8.5-10.1); CARBON DIOXIDE 27 mmol/L (21-32); CHLORIDE 99 mmol/L (98-107); GLUCOSE 83 mg/dl (70-99); SODIUM 134 mmol/L (136-145)
[2017-05-16 13:42] LABS: ALKALINE PHOSPHATASE 90 U/L (45-117); AST/SGOT 27 U/L (15-37)
[2017-05-16 14:39] LABS: URINE BACTERIA NEG (NEG); URINE RBC 0-4 /hpf (0-4); URINE WBC 0 /hpf (0-5)
== END | disposition home or self-care (01) ==
LOC: C.LAB1850 10:00
PROVIDERS: ATTEND Internal Medicine Nephrology
DX: D86.9 Sarcoidosis, unspecified (principal); N20.0 Calculus of kidney; N18.2 Chronic kidney disease, stage 2 (mild); E83.52 Hypercalcemia

== ENCOUNTER → 2017-11-12 | Outpatient (CLI) | payer OTHER ==
[2017-11-12 14:38] LABS: HEMOGLOBIN 16.1 g/dL (14.0-18.0); MEAN CELL VOLUME 87.4 fL (80-100); MEAN CORPUSCULAR HEMOGLOBIN 29.9 pg (25-34); MEAN CORPUSCULAR HGB CONC 34.3 g/dl (32-36); MEAN PLATELET VOLUME 10.2 fL (7.4-10.4); PLATELET COUNT 162 K/uL (130-400); RED CELL DISTRIBUTION WIDTH CV 13.1 % (11.5-14.5); RED CELL DISTRIBUTION WIDTH SD 42.1 fL (36.4-46.3); WHITE BLOOD COUNT 6.58 K/uL (4.8-10.8)
[2017-11-12 15:18] LABS: ALBUMIN 3.8 gm/dl (3.4-5.0); ALT/SGPT 32 U/L (12-78); AST/SGOT 25 U/L (15-37); BLOOD UREA NITROGEN 21 mg/dl (7-18); CALCIUM 9.8 mg/dl (8.5-10.1); CARBON DIOXIDE 27 mmol/L (21-32); GLUCOSE 84 mg/dl (70-99); POTASSIUM 3.8 mmol/L (3.5-5.1); SODIUM 135 mmol/L (136-145)
[2017-11-12 15:20] LABS: ALKALINE PHOSPHATASE 91 U/L (45-117); TOTAL PROTEIN 7.9 gm/dl (6.4-8.2)
== END | disposition home or self-care (01) ==
LOC: C.LAB1850 13:51
PROVIDERS: ATTEND Internal Medicine Nephrology
DX: D86.9 Sarcoidosis, unspecified (principal); N20.0 Calculus of kidney; N18.2 Chronic kidney disease, stage 2 (mild); E83.52 Hypercalcemia

== ENCOUNTER 2020-02-15 16:06 | Observation (INO) ==
[2020-02-15] MEDS ORDERED: cefTRIAXone SODIUM 2,000 MG/70 ML BAG IV STA (16:10)
[2020-02-15] MEDS ORDERED: ACETAMINOPHEN 1,000 MG/100 ML VIAL IV STA (16:10)
[2020-02-15] MEDS ORDERED: MoRPHine SULFATE 4 MG/ML 1 ML CARP\\VIAL IV STA ×2 (16:10→16:36)
[2020-02-15] MEDS ORDERED: PROPOFOL IV EMULSION 10 MG/ML 20 ML VIAL IV ONE ×2 (16:11→22:24)
[2020-02-15] MEDS ORDERED: PROPOFOL IV EMULSION 10 MG/ML 20 ML VIAL IV STA (16:13)
[2020-02-15] MEDS ORDERED: DIPHTHERIA/TETANUS/PERTUSSIS 0.5 ML SYR/VIAL IM ONE (16:13)
[2020-02-15] MEDS ORDERED: MoRPHine SULFATE 4 MG/ML 1 ML CARP\\VIAL ONE (16:14)
[2020-02-15] MEDS ORDERED: SODIUM CHLORIDE 0.9% 1000ML 1,000 ML IV SCH (16:15)
[2020-02-15] MEDS ORDERED: KETAMINE HCL INJ 50 MG/ML 10 ML VIAL ONE (16:34)
[2020-02-15 16:38] LABS: Basophils # (auto) 0.04 K/uL (0-0.2); Basophils % (auto) 0.4 %; Eosinophils # (auto) 0.16 K/uL (0-0.5); Eosinophils % (auto) 1.4 %; Hematocrit (blood only) 48.5 % (42-52); Immature Granulocytes # (auto) 0.04 K/uL (0.00-0.02); Immature Granulocytes % (auto) 0.4 %; Lymphocytes # (auto) 3.55 K/uL (1.2-3.4); Lymphocytes % (auto) 32.1 %; Mean Corpuscular Hemoglobin 29.5 pg (25-34); Mean Corpuscular Volume 89.5 fL (80-100); Mean Platelet Volume 9.9 fL (7.4-10.4); Monocytes # (auto) 0.75 K/uL (0.11-0.59); Monocytes % (auto) 6.8 %; Neutrophils # (auto) 6.51 K/uL (1.4-6.5); Neutrophils % (auto) 58.9 %; Platelet Count 210 K/uL (130-400); RDW Standard Deviation 42.4 fL (36.4-46.3); Red Blood Count 5.42 M/uL (4.7-6.1); White Blood Count 11.05 K/uL (4.8-10.8)
[2020-02-15 16:46] LABS: Prothrombin Time 10.3 Seconds (9.0-12.0)
[2020-02-15] MEDS ORDERED: fentaNYL citrate 100 MCG/2 ML VIAL ONE ×2 (16:54→19:09)
[2020-02-15] MEDS ORDERED: ONDANSETRON INJ 2 MG/ML 2 ML VIAL ONE ×2 (16:54→22:24)
[2020-02-15] MEDS ORDERED: ONDANSETRON INJ 2 MG/ML 2 ML VIAL IV ONE (16:54)
[2020-02-15 16:58] LABS: Albumin Level 3.9 gm/dl (3.4-5.0); BUN Creatinine Ratio 9.9 (10-20); Calcium 9.3 mg/dl (8.5-10.1); Est GFR (African American) 42.9; Potassium 3.8 mmol/L (3.5-5.1)
[2020-02-15 17:01] LABS: Albumin Globulin Ratio 0.9 (0.9-2); Bilirubin,Total 0.6 mg/dl (0.2-1); Globulin 4.1 gm/dl (2.5-4.0)
[2020-02-15] MEDS ORDERED: fentaNYL citrate 100 MCG/2 ML VIAL IV PRN ×3 (17:09→23:09)
--- NOTE | 2020-02-15 17:12 | XRay Report ---
XR wrist RT 2V HISTORY: 49 years-old Male open fx acute trauma of the right wrist COMPARISON: None TECHNIQUE: 2 views of the right wrist FINDINGS: There is an acute comminuted markedly displaced distal radial fracture which demonstrates apex volar angulation of 39 degrees. 2.9 cm foreshortening/apposition and 2.5 cm dorsal displacement. Open fract ure component is noted with distal radius and ulna. It extends to the skin surface. Subcutaneous emph ysema. Distal ulna appears intact. No acute carpal bone fracture identified. IMPRESSION: Acute, comminuted, displaced and foreshortened distal radial open fracture as above. ACT 112: Negative or not required by law. The above report was generated using voice recognition software. It may contain grammatical, syntax o r spelling errors. Electronically signed by: Oc Pardo M.D. 02/15/2020 5:11 PM
--- NOTE | 2020-02-15 17:15 | Emergency Department Note ---
Pre Sedation Assessment Vital Signs Temp Pulse Resp BP Pulse Ox 02/15/20 16:18 97 H 24 98 02/15/20 16:08 37.1 C 95 H 20 183/107 H Pre-Sedation Airway Assessment Smoking Status: Never smoker Hx Sleep Apnea: No Short, Thick Neck: No Thyromental Distance: > or= 3.5 Finger Breadths Oral Cavity: + WNL Mallampati Class: I ASA: ASA3 NPO Status Date of Last Intake of Fluids: 02/15/20 Time of Last Intake of Fluids: 16:00 Date of Last Intake of Solid Food: 02/15/20 Time of Last Intake of Solid Foods: 15:00 Notes The planned sedation has been discussed with the patient. Informed Consent was obtained. I have identified the patient, determined the appropriateness of sedation and have assessed the patient immediately prior to the procedure. All medicine(s) and interventions are by my order.
--- NOTE | 2020-02-15 17:18 | Emergency Department Note ---
Post Sedation Assessment Vital Signs Temp Pulse Resp BP Pulse Ox 02/15/20 16:18 97 H 24 98 02/15/20 16:08 37.1 C 95 H 20 183/107 H Post Sedation Plan On clinical assessment, the patient appears to have tolerated the sedation without complications. Patient is recovering as anticipated. Patient will continue to be monitored by nursing and may be discharged when sedation discharge criteria are met per below protocol. Upon Completions of procedure up to 15 minutes continue every 5 minute vital signs and the P.A.R. score; then discharge to a Phase I or Fast Track to Phase II per the following guidelines: * Discharge Patient to appropriate Phase II area if PAR is 8 or greater or return to pre- procedure baseline. The post - procedure orders will be as directed. * If PAR score is less than 8 or not return to pre-procedure baseline then patient will follow Phase I monitoring till PAR is reached for Phase II. The Phase I may be done in procedure room or may call to secure a Phase I area. * If naloxone or flumazenil are used for reversal, hold in Phase I for continued monitoring from when last reversal dose was given for a minimum of 60 minutes or longer pending the nurse and/or physician discretion of patient condition before discharge to Phase II. Please call the Sedation Physician to re-evaluate and complete post-note for discharge to Phase II area. Do NOT discharge from procedure sedation or Phase 1 until post- sedation lamar luation note is complete by procedure /sedation MD Sedation Discharge Instructions to be given to the patient at discharge to home. Sedation Data Time Out Team Members Agree on the Following: Correct Patient, Correct Procedure and Allergies Verified Time Out Performed Time: 16:50 Sedation Times Sedation Start Date: 02/15/20 Sedation Start Time: 16:51 Sedation End Date: 02/15/20 Sedation End Time: 17:13 Total Sedation Time: 22
--- NOTE | 2020-02-15 17:19 | Emergency Department Note ---
ED Visit Note Procedural Sedation Indication: reduction. Total time: 22 minutes. Written consent was obtained after the risks and benefits were explained to the father and patient, including, but not limited to aspiration, allergic reaction, breathing difficulties, cardiac complications, vomiting, pain, event recall, bleeding, and/or infection. Pre-sedation examination and paperwork completed. The patient was on 100% oxygen via NRB prior to the procedure. Continous end tidal CO2 monitoring, pulse oximetry, and cardiac monitoring were utilized. Suction, airway equipment, medications, respiratory equipment, and appropriate personnel were prepared prior to the initiation of the procedure. A time out was taken. Sedation was achieved utilizing 120 mg of propofol and 50 mcg of fentanyl. After I observed the patient had reached the appropriate level of sedation the main procedure was performed without complication. Sedation was discontinued and the monitoring continued. The patient recovered quickly from the effects of the medication without complication or adverse event. .
--- NOTE | 2020-02-15 17:23 | XRay Report ---
XR wrist RT 2V HISTORY: 49 years-old Male post reduction status post reduction of the acute right distal radial fra cture COMPARISON: Right wrist radiographs of same day at 4:37 PM TECHNIQUE: 2 views of the right wrist were obtained status post casting and reduction. FINDINGS: Fine bony detail is limited secondary to overlying cast material. Status post reduction and casting o f the previously described acute distal radial fracture. There is markedly improved now near-anatomic alignment of the distal radial fracture. There is an equivocal acute nondisplaced fracture involving the base of the ulnar styloid. Persistent soft tissue swelling. IMPRESSION: 1. Improved near anatomic alignment of the acute distal radial fracture status post reduction and eloise ting. 2. Equivocal acute nondisplaced fracture involves the base of the ulnar styloid. ACT 112: Negative or not required by law. The above report was generated using voice recognition software. It may contain grammatical, syntax o r spelling errors. Electronically signed by: Oc Pardo M.D. 02/15/2020 5:22 PM
--- NOTE | 2020-02-15 17:25 | XRay Report ---
XR chest 1V portable HISTORY: 49 years-old Male preop preoperative exam. No acute chest complaints COMPARISON: Chest radiograph 6 04/22/2018, chest CT 12/30/2016 TECHNIQUE: Portable AP view of the chest FINDINGS: Bilateral reticular nodular opacities are redemonstrated cardia mediastinal and hilar silhouettes are unchanged. No pneumothorax, pleural effusion or overt pulmonary edema. Bones appear grossly intact. IMPRESSION: 1. No acute process. 2. Bilateral reticular nodular opacities are redemonstrated compatible with patient's known sarcoidos is. ACT 112: Negative or not required by law. The above report was generated using voice recognition software. It may contain grammatical, syntax o r spelling errors. Electronically signed by: Oc Pardo M.D. 02/15/2020 5:23 PM
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
--- NOTE | 2020-02-15 17:57 | Fluoroscopy Report ---
FL wrist RT 3V RTN HISTORY: 49 years-old Male OPEN FX RIGHT WRIST acute fracture of the right distal radius COMPARISON: Right wrist radiographs of same day at 4:37 PM TECHNIQUE: 4 spot fluoroscopic images of the right wrist were obtained utilizing 9 seconds fluoroscop y time FINDINGS: Status post reduction and casting of the previously described acute, comminuted and displaced distal radial fracture. There is markedly improved now near anatomic alignment. IMPRESSION: Fluoroscopic assistance as above. Please see procedural report for further details. ACT 112: Negative or not required by law. The above report was generated using voice recognition software. It may contain grammatical, syntax o r spelling errors. Electronically signed by: Oc Pardo M.D. 02/15/2020 5:55 PM
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
[2020-02-15] MEDS ORDERED: ONDANSETRON INJ 2 MG/ML 2 ML VIAL IV PRN ×2 (19:01→23:53)
[2020-02-15] MEDS ORDERED: ATROPINE SULFATE 0.1 MG/ML 10ML SYR IV PRN (19:01)
[2020-02-15] MEDS ORDERED: ePHEDrine sulfate 50 MG/ML AMP IV PRN (19:01)
--- NOTE | 2020-02-15 19:07 | Anesthesiology Consultation ---
Date of Service February 15, 2020 Assessment & Plan (1) Encounter for pre-operative examination: Chart Review Chart Review: Acceptable Risk for Surgery and Patient NOT seen in Pre Admission Testing Consults Requested none ASA [id number] Proposed Anesthesia Anesthesia Type: General Risk / Benefits Reviewed With: PT / POA / Parent / Guardian, Accepts Plan and In formed Consent Obtained History Surgery Operation Date: 02/15/20 18:30 Proposed Procedures p Incision and Drainage Extremity - Salomon Angel MD Height/Weight Height: 5 ft 11 in Weight: 78 kg Allergies Allergy/AdvReac Type Severity Reaction Status Date / Time No Known Allergies Allergy Verified 02/15/20 17:35 Medications Home Medications Medication Instructions Recorded Confirmed Last Taken prednisone 5 mg PO QAM 04/24/18 02/15/20 02/15/20 Active Medications Generic Name Dose Route Start Last Admin Trade Name Freq PRN Reason Stop Dose Admin Sodium Chloride 1,000 mls @ 125 mls/hr 02/15/20 16:15 02/15/20 16:16 Nss 1000ml IV 03/16/20 16:14 125 mls/hr .Q8H CH[place]ICK Administration NPO Date Last Intake of Fluids: 02/15/20 Time Last Intake of Fluids: 15:30 Date Last Intake of Solids: 02/15/20 Time Last Intake of Solids: 14:00 Past Medical History Medical History Chronic kidney disease, stage II (mild) (Chronic) Chronic steroid use Hypercalcemia Kidney stones (Chronic) Sarcoidosis (Chronic) TAKES DAILY PREDNISONE Exercise / Class Metabolic Activity II 4-5 Yardwork/Stairs/Walk up hill Past Surgical History Surgical History History of bronchoscopy X2 SARCODOSIS History of cystoscopy W STENTS History of lithotripsy Past Anesthesia History No Hx of Anesthesia Complications and No Family Hx of Anesthesia Complications History of PONV No Hx of PONV and No Hx of Motion Sickness Social History Smoking Status: Never smoker Hx Alcohol Use: No Hx Substance Use: No substance use type: does not use Physical Exam Vital Signs Last Vital Signs Temp 98.8 F 02/15/20 16:08 Pulse 86 02/15/20 18:31 Resp 20 02/15/20 18:30 BP 133/94 02/15/20 18:30 Pulse Ox 98 02/15/20 18:30 ENMT Mouth: no dentition abnormality Thyromental Distance: > or= 3.5 Finger Breadths Mallampati Class: II Neck normal visual inspection Respiratory normal respiratory effort Auscultation: lungs clear to auscultation bilaterally Cardiovascular Rate/Rhythm: regular rate and regular rhythm Testing Laboratory Results 02/15/20 16:15 02/15/20 16:15 PT 10.3 Seconds (9.0-12.0) 02/15/20 16:15 INR 1.0 (0.9-1.1) 02/15/20 16:15 Electrocardiogram Date: 02/15/20 Normal sinus rhythm, rate 91 bpm Possible Left atrial enlargement Borderline ECG When compared with ECG of 22-APR-2018 12:13, Vent. rate has increased BY 30 BPM Questionable change in QRS axis QT has lengthened Chest X-Ray Date: 02/15/20 IMPRESSION: 1. No acute process. 2. Bilateral reticular nodular opacities are redemonstrated compatible with patient's known sarcoidosis.
[2020-02-15] MEDS ORDERED: MIDAZOLAM HCL 1 MG/ML 2ML VIAL ONE (19:09)
--- NOTE | 2020-02-15 22:22 | Post Operative Brief Note ---
Immediate Post Op Note v1 Date of Surgery February 15, 2020 Pre & Post Diagnosis Operation Date: 02/15/20 18:30 Pre-Op Diagnosis: Open fracture of distal end of right radius Post-Op Diagnosis: Open fracture of distal end of right radius I identified the patient and participated in the time-out.: Yes Procedure Operation Date: 02/15/20 18:30 Actual Procedures p Open reduction internal fixation right distal radius fracture; irrigation and debridement right distal radius fracture(Right) - Salomon Angel MD Surgeon Salomon Angel MD Sheeting Puller Vijay Jarrett MD Estimated Blood Loss 25 Findings Consistent with Post-Op Diagnosis Fluids 900 cc Anesthesia Type General Complications none Disposition Accompanied Patient To Recovery: No Disposition: Recovery Room
[2020-02-15] MEDS ORDERED: DEXAMETHASONE SOD INJ 4 MG/ML VIAL ONE (22:24)
[2020-02-15] MEDS ORDERED: LIDOCAINE HCL 2% 2 ML VIAL/AMP(20MG/ML) INFIL ONE (22:24)
[2020-02-15] MEDS ORDERED: HYDROmorphone INJ 2 MG/ML SYR/VIAL IV PRN (23:09)
--- NOTE | 2020-02-15 23:23 | Anesthesiology Progress Note ---
Date of Service February 15, 2020 Anesthesia Post Procedure Vital Signs Vital Signs: Temp Pulse Pulse Resp BP BP Pulse Ox 02/15/20 23:13 37.1 C 100 H 16 136/73 99 02/15/20 23:03 37.3 C 104 H 16 122/66 99 02/15/20 18:31 86 02/15/20 18:30 88 20 133/94 98 02/15/20 18:01 84 18 98 02/15/20 18:00 89 20 147/99 H 98 02/15/20 17:46 87 18 97 02/15/20 17:45 84 154/99 H 97 02/15/20 17:43 81 18 154/99 H 97 02/15/20 17:40 84 154/102 H 97 02/15/20 17:35 90 146/93 H 98 02/15/20 17:31 81 98 02/15/20 17:30 89 158/97 H 98 02/15/20 17:25 79 161/97 H 99 02/15/20 17:20 85 21 151/104 H 151/104 H 100 02/15/20 17:15 90 20 147/95 H 147/95 H 99 02/15/20 17:13 85 26 H 98 02/15/20 17:10 83 22 161/91 H 99 02/15/20 17:05 80 18 148/88 H 100 02/15/20 17:00 73 18 145/99 H 99 02/15/20 16:55 71 20 151/107 H 99 02/15/20 16:50 96 H 25 H 154/92 H 99 02/15/20 16:45 81 141/96 H 99 02/15/20 16:41 90 97 02/15/20 16:40 86 139/91 100 02/15/20 16:36 85 100 02/15/20 16:35 86 151/94 H 98 02/15/20 16:30 80 150/96 H 96 02/15/20 16:26 94 02/15/20 16:25 84 153/97 H 95 02/15/20 16:21 87 100 02/15/20 16:20 86 154/93 H 95 02/15/20 16:18 97 H 24 98 02/15/20 16:15 96 H 99 02/15/20 16:11 92 H 24 02/15/20 16:09 98 H 22 183/107 H 02/15/20 16:08 37.1 C 95 H 20 183/107 H Pain Intensity Right Wrist: Pain Intensity: 2 Transfer of Care Handoff Completed per policy Notes Mental Status: alert / awake / arousable and participated in evaluation Patient Amnestic to Procedure: Yes Nausea / Vomiting: adequately controlled Pain: adequately controlled Airway Patency, RR, SpO2: stable & adequate BP & HR: stable & adequate Hydration State: stable & adequate Anesthetic Complications: no major complications apparent
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
[2020-02-15] MEDS ORDERED: HYDROmorphone INJ 0.5 MG/0.5 ML SYR IV PRN (23:53)
[2020-02-15] MEDS ORDERED: ACETAMINOPHEN 325 MG TAB PO PRN (23:53)
[2020-02-16] MEDS: CEFAZOLIN 2000MG 2,000 MG/15 ML SYR IV SCH ×2 (00:37→09:02)
--- NOTE | 2020-02-16 06:37 | XRay Report ---
XR wrist RT 2V CLINICAL HISTORY: s/p ORIF R distal radius fx COMPARISON: 02/15/2020 DISCUSSION: Anatomic alignment post open reduction internal fixation of the comminuted fracture of th e distal radius. Alignment again appears anatomic. Patient is in casting material. Expected postopera tive soft tissue change IMPRESSION: Anatomic alignment post open reduction internal fixation. ACT 112: Negative or not required by law. The above report was generated using voice recognition software. It may contain grammatical, syntax or spelling errors. Electronically signed by: Rafael Mcclain M.D. 02/16/2020 6:36 AM
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
[2020-02-16] MEDS ORDERED: predniSONE 5 MG TAB PO SCH (09:00)
[2020-02-16] MEDS: OXYCODONE/ACETAMINOPHEN 5mg/325mg TAB PO PRN ×2 (10:49→12:22)
--- NOTE | 2020-02-17 05:59 | Electrocardiogram Report ---
Test Reason : Blood Pressure : / mmHG Vent. Rate : 091 BPM Atrial Rate : 091 BPM P-R Int : 140 ms QRS Dur : 086 ms QT Int : 366 ms P-R-T Axes : 078 032 051 degrees QTc Int : 450 ms Poor data quality, interpretation may be adversely affected Normal sinus rhythm Possible Left atrial enlargement Borderline ECG When compared with ECG of 22-APR-2018 12:13, Vent. rate has increased BY 30 BPM Questionable change in QRS axis Confirmed by Praful Pascal ([id number]) on 02/17/2020 5:58:55 AM Referred By: REFERRED SELF Confirmed By:Praful Pascal
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
== END 2020-02-16 13:29 | disposition home or self-care (01) ==
LOC: ED 16:06 → OR 18:52 → 3E 18:52